=== PATIENT | female | born 1975 | race Caucasian/White ===

== ENCOUNTER 2017-04-14 11:46 | Observation (INO) ==
[2017-04-14 14:04] LABS: Hematocrit 37.7 % (35.3-44.9); Hemoglobin 12.5 g/dL (11.5-15.4); Mean Corpuscular HGB Conc 33.2 g/dL (31.6-35.5); Mean Corpuscular Hemoglobin 29.1 pg (28.0-33.3); Mean Corpuscular Volume 87.9 fL (83.0-100.0); Platelet Count 168 K/mcL (140-400); Red Blood Count 4.29 M/mcL (3.82-4.97); Red Cell Distribution Width 13.3 % (11.5-14.5)
[2017-04-14 14:35] LABS: Thyroid Stimulating Hormone 1.952 mcIU/mL (0.340-5.600)
[2017-04-14 14:42] LABS: BUN/Creatinine Ratio 18 (6-26); Blood Urea Nitrogen 14 mg/dL (6-20); Calcium 9.8 mg/dL (8.6-10.3); Carbon Dioxide 24 mEq/L (23-29); Chloride 106 mEq/L (98-107); Glucose 79 mg/dL (70-105); Osmolality,Calculated 285 (280-300); Potassium 3.9 mEq/L (3.5-5.1); Sodium 138 mEq/L (136-145); eGFR For Non-African Americans > 60 (> 60)
--- NOTE | 2017-04-14 15:39 | Emergency Department Note ---
Disposition Clinical Impression: Chest pain Qualifiers: Chest pain type: unspecified Qualified Code(s): R07.9 - Chest pain, unspecified Disposition: Admitted As Inpatient Condition: Good Referrals: Angel Crockett MD [Primary Care Provider] - Forms: ED Satisfaction Letter Time of Disposition: 15:40 Chest Pain HPI - General Chief Complaint: ED Chest Pain Stated Complaint: JOHN/Chest discomfort Time Seen by Provider: 04/14/17 14:41 Source: patient Mode of arrival: ambulatory Limitations: no limitations, age Vital Signs Reviewed: Yes Nursing Notes Reviewed: Yes - History of Present Illness HPI Narrative: 41-year-old female is been having intermittent chest pain today. The patient states she does have risk factors including family history and high blood pressure. She has had no recent cardiac workup. 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 Patient has no risk factors and symptoms are not consistent with thromboembolic disease. Pt complaint: chest pain Onset (ago): hour(s) (Several) Duration: intermittent Onset: during rest Pain Location: substernal, left chest Severity: moderate Quality: tightness, aching Pain Radiation: none Improves with: nothing Worsens with: nothing Treatments prior to arrival chest pain: none - Related Data Allergies Allergy/AdvReac Type Severity Reaction Status Date / Time Sulfa (Sulfonamide Allergy Unknown See Verified 04/14/17 12:01 Antibiotics) Comments All systems ED: reviewed and negative except as stated. Constitutional: Denies: fever, chills, weakness, weight change Eyes: Denies: eye pain, eye discharge, vision change ENT ED: Denies: ear pain, throat pain, dental pain, hearing loss, epistaxis, congestion, dysphagia Cardiovascular: Reports: chest pain. Denies: palpitations, dyspnea on exertion , edema, syncope Respiratory: Denies: cough, dyspnea, wheezes, hemoptysis, stridor Gastrointestinal: Denies: abdominal pain, nausea, vomiting, diarrhea, constipation, hematemesis, melena, hematochezia Genitourinary: Denies: dysuria, frequency, hematuria, discharge Musculoskeletal: Denies: back pain, neck pain, arthralgia, myalgia Integumentary: Denies: rash, abrasion, lesions Neurological: Denies: headache, weakness, numbness, paresthesias, confusion, abnormal gait, vertigo Psychiatric: Denies: anxiety, depression, suicidal thoughts, homicidal thoughts , auditory hallucinations, visual hallucinations Endocrine: Denies: fatigue Hematological/Lymphatic: Denies: easy bleeding, easy bruising Allergic/Immunologic: Denies: facial swelling, urticaria Chest Pain PMH - Past Medical History Medical history: Reports: hypertension Psychiatric history: Reports: no psych history DONOR RELATIONS ASSOCIATE history: Reports: no DONOR RELATIONS ASSOCIATE history - Social History Smoking Status: Never smoker Alcohol use: Reports: occasionally Drug use: Reports: none Physical Exam - General Limitations: no limitations General appearance: alert, in no apparent distress - Head Head exam: atraumatic, normocephalic, normal inspection - Eye Eye exam: Present: normal appearance, PERRL, EOMI - ENT ENT exam: normal exam, normal oropharynx, mucous membranes moist - Neck Neck exam: Present: normal inspection, full ROM, trachea midline - Respiratory Respiratory exam: Present: normal lung sounds bilaterally - Cardiovascular Cardiovascular exam: Present: regular rate, normal rhythm, normal heart sounds - Abdominal Exam Abdominal exam: Present: soft, Non-Tender. Absent: tenderness, distention, guarding, rebound, rigidity - Extremities Exam Extremities exam: Present: normal inspection, full ROM. Absent: tenderness, pedal edema - Expanded Lower Extremity Exam Neurovascular/Tendon exam: Absent: motor deficit, sensory deficit, tendon deficit - Back Exam Back exam: Present: normal inspection, full ROM. Absent: tenderness - Neurological Exam Neurological exam: Present: alert, oriented X3 - Psychiatric Psychiatric exam: Present: normal affect, normal mood - Skin Skin exam: Present: warm, dry, intact, normal color Course - Reevaluation(s) Reevaluation #1: 41-year-old with no risk factors who comes in complaining of chest pain. Initial cardiac workup is negative patient will be admitted for further evaluation and treatment. Time: 15:41 - Consultations Consultation #1: Discussed with Time: 15:41 Vital Signs Temperature 98.6 F 04/14/17 12:02 Pulse Rate 68 04/14/17 12:02 Respiratory Rate 15 04/14/17 12:02 Blood Pressure 160/80 04/14/17 12:02 O2 Sat by Pulse Oximetry 96 04/14/17 12:02 Temperature 98.6 F 04/14/17 12:02 Pulse Rate 62 04/14/17 15:09 Respiratory Rate 18 04/14/17 15:09 Blood Pressure 112/80 04/14/17 15:09 O2 Sat by Pulse Oximetry 98 04/14/17 15:09 Oxygen Delivery Oxygen Delivery Room Air Chest Pain - Lab Data Lab results reviewed: Yes I reviewed the patient's lab results. Result diagrams: 04/14/17 13:10 04/14/17 13:10 Lab Results 04/14/17 04/14/17 04/14/17 Range/Units 13:10 13:10 13:10 WBC 3.4 L (4.3-11.1) K/mcL RBC 4.29 (3.82-4.97) M/mcL Hgb 12.5 (11.5-15.4) g/dL Hct 37.7 (35.3-44.9) % MCV 87.9 (83.0-100.0) fL MCH 29.1 (28.0-33.3) pg MCHC 33.2 (31.6-35.5) g/dL RDW 13.3 (11.5-14.5) % Plt Count 168 (140-400) K/mcL MPV 11.0 (9.4-12.4) fL Sodium 138 (136-145) mEq/L Potassium 3.9 (3.5-5.1) mEq/L Chloride 106 (98-107) mEq/L Carbon Dioxide 24 (23-29) mEq/L BUN 14 (6-20) mg/dL Creatinine 0.76 (0.60-1.20) mg/dL Est GFR ( Amer) > 60 (> 60) Est GFR (Non-Af Amer) > 60 (> 60) BUN/Creatinine Ratio 18 (6-26) Glucose 79 (70-105) mg/dL Calculated Osmolality 285 (280-300) Calcium 9.8 (8.6-10.3) mg/dL Troponin I < 0.03 (< 0.04) ng/mL TSH 1.952 (0.340-5.600) mcIU/mL - Radiology Data Radiology results reviewed: Yes I reviewed the patient's radiology results. Chest X-Ray 04/14/17 12:06 IMPRESSION: 1. No active pulmonary disease. D/ / Martin Jhaveri MD / Martin Jhaveri MD Interpreting Provider: Martin Jhaveri MD - EKG Data EKG attestation: Yes I reviewed and interpreted this EKG. EKG shows normal: sinus rhythm Rate: normal Rhythm: NSR [place]/QRS: normal Interpretation: nonspecific ST-T wave changes Heart Score - Score History: Moderately Suspicious EKG: Non Specific repolarisation Disturbance Age: Less than 45 Risk Factors: 1-2 risk factors Troponin: Less than normal limit HEART Score Total: 3
[2017-04-14] MEDS ORDERED: *HR* Morphine 2 MG/ML SYRINGE IVP PRN (15:59)
[2017-04-14] MEDS ORDERED: Naloxone 0.4 MG/ML INJ IVP PRN (15:59)
--- NOTE | 2017-04-14 16:22 | Internal Med History&Physical ---
<Mayers,Lorraine J - Last Filed: 04/14/17 16:17> Date of Encounter: 04/14/17 Time of Encounter: 16:27 Assessment and Plan (1) Chest pain Current visit: Yes Status: Acute with chest pain that started on morning of presentation. Initial troponin negative, EKG without acute ST changes. No known CAD, no previous ischemic eval. Cardiac risk factors include morbid obesity, hypertension and family history. Continue to cycle troponin, check echo. NPO at midnight for stress test in the morning. Start ASA. Hgb A1c, lipid panel pending. Consult cardiology if needed. Qualifiers: Chest pain type: unspecified Qualified Code(s): R07.9 - Chest pain, unspecified (2) Hypertension Current visit: Yes Status: Acute per hx. Patient reports SBP in 160s prior to arrival. BP well controlled and EGD. Resume home BP medication once medication reconciliation complete. Qualifiers: Hypertension type: essential hypertension Qualified Code(s): I10 - Essential (primary) hypertension (3) DVT prophylaxis Current visit: Yes Status: Acute heparin Internal Medicine - H&P: HPI Chief complaint: chest pain Admitted From: Home Plans for Post Hospital Care: Home History of present illness: Ms. Han is a 41 year old female hypertension and morbid obesity who presented to [facility] [place] on 04/14/2017 with complaints of chest pain. She was placed in observation status for further workup and treatment. Information obtained from chart review and patient report. Patient says she was sitting at her desk today when she had acute onset of upper chest pain. Described pain as a squeezing sensation then transition to stabbing. Chest pain worse with deep inspiration had associated nausea. Episode lasted approximately 1 hour. Nothing relieved chest pain. She still having mild chest discomfort on my exam. She describes this pain as annoying. Past Med Surg Social Fam HX - Past Medical History Medical history: hypertension Psychiatric history: no psych history - Past Surgical History Surgical History: - Social History Smoking Status: Never smoker Smokeless Tobacco Status: No Alcohol use: occasionally Drug use: none - Family History Father Living Status: Hx Family Cardiac Disorders: Yes (NE age 49) Internal Medicine - H&P: Meds 3 Allergy/AdvReac Type Severity Reaction Status Date / Time Sulfa (Sulfonamide Allergy Unknown See Verified 04/14/17 12:01 Antibiotics) Comments All Systems PM: A 10-system review of systems was performed and is negative for pertinent findings except as documented above in the HPI. - Constitutional Constitutional: no chills, no fever(s), no night sweats - EENT Eyes: no change in vision, no discharge, no pain, no photophobia Ears: no ear discharge, no ear pain, no tinnitus Nose, mouth and throat: no dysphagia, no nasal discharge, no neck pain, no sore throat - Cardiovascular Cardiovascular ROS IM: chest pain, no diaphoresis, no dyspnea, no lightheadedness, no palpitations, no syncope - Respiratory Respiratory: no cough, no dyspnea, no wheezing, no excessive phlegm production - Gastrointestinal Gastrointestinal: no abdominal pain, no diarrhea, no hematemesis, no hematochezia, no melena, no nausea, no vomiting - Genitourinary Genitourinary: no change in urinary stream, no dysuria, no flank pain, no hematuria - Musculoskeletal Musculoskeletal ROS IM: no numbness, no tingling - Integumentary Integumentary IM: no rash, no unusual bruising - Neurological Neurological ROS: no confusion, no convulsions, no focal weakness, no numbness, no tingling, no tremor(s) - Hematologic/Lymphatic Hematologic/Lymphatic: no easy bruising - Constitutional Vitals: Temp Pulse Resp BP Pulse Ox 98.6 F 62 18 112/80 98 04/14/17 12:02 04/14/17 15:09 04/14/17 15:09 04/14/17 15:09 04/14/17 15:09 General appearance: Present: A&O X 3, morbidly obese - Head Head exam: Present: atraumatic, normocephalic - Eye Eye exam: Present: PERRL, conjuntiva pink, sclera anicteric Pupils: Present: PERRL - Neck Neck exam general surgery: Present: supple, trachea midline. Absent: lymphadenopathy - Respiratory Respiratory exam: Present: chest wall tenderness, CTAB. Absent: accessory muscle use, rales, rhonchi, wheezes - Cardiovascular Cardiovascular exam: Present: RRR, +S1, +S2. Absent: diastolic murmur, gallop, rubs, systolic murmur - GI/Abdominal GI/Abdominal exam: Present: normal bowel sounds, soft, no peritoneal signs. Absent: distended, tenderness - Extremities Exam Extremities exam: Present: warm, radial pulses palpable and symmetrical. Absent : calf tenderness, cyanotic, pedal edema - Neurological Exam Neurological exam: Present: CN II-XII intact, oriented X3, no focal deficits. Absent: pronater drift, facial droop, speech deficit - Skin Skin exam: Present: dry, intact Internal Med - H&P Results - Labs CBC & Chem 7: 04/14/17 13:10 04/14/17 13:10 <Mika Goodson - Last Filed: 04/14/17 18:23> Date of Encounter: 04/14/17 Internal Medicine - H&P: HPI History of present illness: Ms. Han is a 41 year old female All Systems PM: A 10-system review of systems was performed and is negative for pertinent findings except as documented above in the HPI. - Constitutional Vitals: Temp Pulse Resp BP Pulse Ox 98.3 F 66 18 109/68 100 04/14/17 16:52 04/14/17 16:52 04/14/17 16:52 04/14/17 16:52 04/14/17 16:52 Internal Med - H&P Results - Labs CBC & Chem 7: 04/14/17 13:10 04/14/17 13:10 - Attending Attestation I have personally performed a face to face evaluation on this patient. I have reviewed and agree with the care plan Provided by YAMILE Mayers. History and Exam by me shows: Ms. Han is a 41 year old female hypertension and morbid obesity who presented to [facility] [place] on 04/14/2017 with complaints of chest pain. Pt denied any active CP now. She does have significant FH of Cardiac problems Gen: A, A, O x 3 Chest : Diminished BS b/l no crackles Heart: S1S2+ RRR A/p 1. Acute chest pain on Tele check serial trop Stress test in AM
[2017-04-14] MEDS: Aspirin 81 MG TAB.CHEW PO SCH (16:57)
[2017-04-14] MEDS: *HR* Heparin 5,000 UNIT/ML VIAL SQ SCH (23:08)
[2017-04-15 01:35] LABS: Hematocrit 34.8 % (35.3-44.9); Hemoglobin 11.5 g/dL (11.5-15.4); Mean Corpuscular Hemoglobin 28.9 pg (28.0-33.3); Mean Corpuscular Volume 87.4 fL (83.0-100.0); Mean Platelet Volume 10.8 fL (9.4-12.4); Platelet Count 174 K/mcL (140-400); Red Blood Count 3.98 M/mcL (3.82-4.97); Red Cell Distribution Width 13.2 % (11.5-14.5)
[2017-04-15 01:46] LABS: BUN/Creatinine Ratio 19 (6-26); Blood Urea Nitrogen 17 mg/dL (6-20); Calcium 8.8 mg/dL (8.6-10.3); Carbon Dioxide 29 mEq/L (23-29); Chloride 108 mEq/L (98-107); Chol/HDL Ratio 3.4 (0-4.9); Cholesterol 135 mg/dL (< 200); Glucose 104 mg/dL (70-105); HDL Cholesterol 40 mg/dL (40-59); LDL Cholesterol,Calculated 71 mg/dL (0-99); Osmolality,Calculated 294 (280-300); Potassium 3.6 mEq/L (3.5-5.1); Sodium 141 mEq/L (136-145); Triglycerides 118 mg/dL (< 150); eGFR For Non-African Americans > 60 (> 60)
[2017-04-15] MEDS: *HR* Heparin 5,000 UNIT/ML VIAL SQ SCH ×3 (04:16→21:15)
[2017-04-15] MEDS ORDERED: Regadenoson 0.4 MG/5 ML SYRINGE IVP ONE (05:54)
[2017-04-15] MEDS: Aspirin 81 MG TAB.CHEW PO SCH (14:12)
--- NOTE | 2017-04-15 16:28 | Internal Med Progress Note ---
Date of Encounter: 04/15/17 Time of Encounter: 15:00 - Assessment and plan (1) Chest pain Current Visit: Yes Status: Acute Assessment and plan: with chest pain that started on morning of presentation. Initial troponin negative, EKG without acute ST changes. No known CAD, no previous ischemic eval. Cardiac risk factors include morbid obesity, hypertension and family history. Continue to cycle troponin, check echo. NPO at midnight for stress test in the morning. Start ASA. LDL 71. Hgb A1c pending Consult cardiology if needed. Qualifiers: Chest pain type: unspecified Qualified Code(s): R07.9 - Chest pain, unspecified (2) Hypertension Current Visit: Yes Status: Acute Assessment and plan: per hx. BP borderline/soft. No tachycardia. Hold on resuming home BP medications at this time. Resume as BP allows. Qualifiers: Hypertension type: essential hypertension Qualified Code(s): I10 - Essential (primary) hypertension (3) DVT prophylaxis Current Visit: Yes Status: Acute Assessment and plan: heparin - Subjective Interval history: Seen and examine francheska bedside. Says she feels better, no chest pain. She is aware of 2 day stress. Discussed weight loss management strategies in detail. - Constitutional Vitals: Temp Pulse Resp BP Pulse Ox 98.6 F 70 14 93/64 97 04/15/17 15:29 04/15/17 15:29 04/15/17 15:29 04/15/17 15:29 04/15/17 15:29 General appearance: Present: A&O X 3, morbidly obese - Head Head exam: Present: atraumatic, normocephalic - Eye Eye exam: Present: PERRL, conjuntiva pink, sclera anicteric Pupils: Present: PERRL - Neck Neck exam general surgery: Present: supple, trachea midline. Absent: lymphadenopathy - Respiratory Respiratory exam: Present: CTAB. Absent: accessory muscle use, rales, rhonchi, wheezes - Cardiovascular Cardiovascular exam: Present: RRR, +S1, +S2. Absent: diastolic murmur, gallop, rubs, systolic murmur - GI/Abdominal GI/Abdominal exam: Present: normal bowel sounds, soft, no peritoneal signs. Absent: distended, tenderness - Extremities Exam Extremities exam: Present: warm, radial pulses palpable and symmetrical. Absent : calf tenderness, cyanotic, pedal edema - Neurological Exam Neurological exam: Present: CN II-XII intact, oriented X3, no focal deficits. Absent: pronater drift, facial droop, speech deficit - Skin Skin exam: Present: dry, intact Internal Medicine: Result - Labs CBC & Chem 7: 04/15/17 01:10 04/15/17 01:10 Labs: Short CBC 04/15/17 Range/Units 01:10 WBC 3.2 L (4.3-11.1) K/mcL Hgb 11.5 (11.5-15.4) g/dL Hct 34.8 L (35.3-44.9) % Plt Count 174 (140-400) K/mcL BMP 04/15/17 01:10 Sodium 141 Potassium 3.6 Chloride 108 H Carbon Dioxide 29 BUN 17 Creatinine 0.88 Glucose 104 Calcium 8.8 Cardiac Enzymes 04/14/17 04/15/17 Range/Units 19:07 01:10 Troponin I < 0.03 < 0.03 (< 0.04) ng/mL - Impressions Impressions Echocardiogram 04/14/17 16:07 Impressions: LVEF 65%. Normal LV chamber size, wall thickness and function. Normal left ventricular diastolic function. Normal right ventricular structure and function. No evidence of pulmonary hypertension. No significant valvular dysfunction. Left Ventricular Wall Motion: Rest Echo Findings All wall segments showed normal motion. Findings: Study Quality * Technically adequate exam. ECG Findings * Normal sinus rhythm. Left Ventricle * LVEF 65%. * Normal LV chamber size, wall thickness and function. * Normal left ventricular diastolic function. Right Ventricle * Normal right ventricular structure and function. Left Atrium * Mildly dilated left atrium. Right Atrium * Normal right atrial size. Interatrial Septum * Interatrial septum not well evaluated. Aortic Valve * Trileaflet aortic valve with normal function. * No aortic regurgitation. * No aortic stenosis. Mitral Valve * Normal mitral valve structure and function. * No mitral regurgitation. * No mitral stenosis. Tricuspid Valve * Normal tricuspid valve structure and function. * Trace tricuspid regurgitation. * No evidence of pulmonary hypertension. Pulmonic Valve * Normal pulmonic valve structure and function. * No pulmonic regurgitation. Aorta * Normally sized aortic root. Pericardium * The pericardium appears normal. IVC * Normal IVC dimensions and inspiratory collapse. Pulmonary Artery * Normal visualized portions of the main pulmonary artery. Consult Discharge Plan - Plan Referrals: Angel Crockett MD [Primary Care Provider] -
[2017-04-16] MEDS: *HR* Heparin 5,000 UNIT/ML VIAL SQ SCH (04:30)
[2017-04-16] MEDS: Aspirin 81 MG TAB.CHEW PO SCH (07:51)
[2017-04-16 11:09] VITALS: BP 128/61
--- NOTE | 2017-04-16 11:42 | Discharge Summary ---
- NOTES TO OUTPATIENT PROVIDER Notes to Outpatient Provider: Recommend follow-up within 1-2 weeks for BP recheck. BP soft/borderline well inpatient. Patient advised to hold BP medication if SBP 120 or less. Recommend referral to bariatric physician. Orders not resulted at time of discharge: Pending orders 04/14/17 15:59 NM ani perf SPECT multi [NM] Routine Date of Encounter: 04/16/17 Time of Encounter: 11:40 - Discharge Diagnosis (1) Chest pain Priority: Primary Status: Acute Comments: with chest pain that started on morning of presentation. Serial troponin negative, EKG without acute ST changes. No known CAD, no previous ischemic eval. Cardiac risk factors include morbid obesity, hypertension and family history. TTE with EF 65%, no wall motion abnormalities. Stress test negative for ischemia or infarct. Chest pain possibly secondary to work related stress/ anxiety. No further cardiac testing indicated at this time. Recommend follow- up with PCP within 1-2 weeks. Qualifiers: Chest pain type: unspecified Qualified Code(s): R07.9 - Chest pain, unspecified (2) Hypertension Priority: Primary Status: Acute Comments: per hx. BP soft/borderline while inpatient. Patient advised to hold BP medication if SBP less than 120. Recommend follow-up with PCP within 1-2 weeks. Patient advised to keep log of BPs for PCP review Qualifiers: Hypertension type: essential hypertension Qualified Code(s): I10 - Essential (primary) hypertension (3) Morbid obesity Priority: Primary Status: Acute Comments: BMI 45, 119kg. Lifestyle modifications encouraged; patient was receptive and interested in bariatric evaluation. Hospital course: Ms. Han is a 41 year old female with past medical history morbid obesity and hypertension who presented to [facility] on 04/14/2017 with complaints of chest pain. ACS was ruled out with negative stress test and echocardiogram. Please see assessment and plan for further details. - Time Spent with Patient Total time spent providing and/or coordinating discharge services: - Discharge Medications Home Medications: Cetirizine HCl [Zyrtec] 10 mg PO DAILY 04/14/17 [History] Fluticasone Propionate Nasal [Flonase] 50 mcg NS DAILY 04/14/17 [History] Lisinopril-HCTZ 10-12.5 [Prinzide 10-12.5] 1 tab PO DAILY 04/14/17 [History] Allergies/Adverse Reactions: 3 Allergy/AdvReac Type Severity Reaction Status Date / Time Sulfa (Sulfonamide Allergy Unknown See Verified 04/14/17 12:01 Antibiotics) Comments Date of admission: 04/14/17 16:05 Primary care physician: Angel Crockett Discharging clinician: Lorraine Mayers Anticipated date of discharge: 04/16/17 - Constitutional Vitals: Temp Pulse Resp BP Pulse Ox 98.7 F 62 18 128/61 97 04/16/17 11:08 04/16/17 11:08 04/16/17 11:08 04/16/17 11:08 04/16/17 11:08 General appearance: Present: A&O X 3, morbidly obese - Patient Status Disposition: Home, Self-Care Condition: Good Functional capacity at discharge: independent ambulation Overall status at discharge: patient is progressing back to baseline - Discharge Instructions Instructions: Chest Pain (DC), Obesity (DC) Follow Up With: Angel Crockett MD [Primary Care Provider] - 04/23/17 1:00 pm () Additional Instructions: Monitor BP daily. Hold BP medications if top number 120 or below. - Diet and Activity Activity: increase activity as tolerated Diet: low fat, low cholesterol
[2017-04-16 13:43] LABS: Hemoglobin A1C 5.4 %
--- NOTE | 2017-04-18 07:37 | Electrocardiograph Report ---
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
--- NOTE | 2017-04-18 09:29 | Electrocardiograph Report ---
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
== END 2017-04-16 12:20 | disposition home or self-care (01) ==
LOC: EMEROO 11:46 → 3BNU 11:46
PROVIDERS: ADMIT Family Medicine; ATTEND Registered Nurse